=== PATIENT | female | born 1955 | race Caucasian/White ===

== ENCOUNTER 2017-03-17 07:56 | Outpatient (CLI) | payer MEDICARE, MEDICAID ==
[2017-03-17 08:11] LABS: Bilirubin Negative (Negative); Blood, Urine Trace (Negative); Clarity Clear (Clear); Glucose, Urine (Dipstick) Negative (Negative); Leukocyte Negative (Negative); Nitrite Negative (Negative); Protein, Urine (Dipstick) Negative (Neg-Trace)
[2017-03-17 09:05] LABS: Bacteria/HPF 1+ HPF (None Seen); RBC/HPF 0-3 HPF (0-3); Squamous Epithelial None Seen HPF (0-3); WBC/HPF 0-3 HPF (0-3)
== END 2017-03-17 07:57 | disposition home or self-care (01) ==
LOC: BURLABSP 07:56
PROVIDERS: ATTEND Clinical Nurse Specialist Medical-Surgical
DX: N39.0 Urinary tract infection, site not specified (principal)
CPT/HCPCS: 81001; 87086

== ENCOUNTER 2021-10-05 19:59 | Emergency (ER) | payer MEDICARE, MEDICAID ==
[2021-10-05 20:18] LABS: #Lymphocytes 1.5 thou/uL (1.20-3.40); #Monocytes 0.6 thou/uL (0.11-0.59); #Neutrophils 7.2 thou/uL (1.40-6.50); %Basophils 0.4 % (0.0-1.0); %Eosinophils 0.3 % (0.0-10.0); %Monocytes 6.5 % (0.0-10.0); %Neutrophils 76.7 % (42.0-75.0); Mean Corpuscular HGB CONC 33.3 g/dL (32.0-36.0); Mean Corpuscular Hemoglobin 31.6 pg (27.0-31.0); Mean Corpuscular Volume 94.9 fL (78.0-98.0); Mean Platelet Volume 9.6 fL (7.4-10.4); Platelet Count 149 thou/uL (130-400); Red Blood Cell (RBC) Count 4.42 mill/uL (4.20-5.40); White Blood Cell (WBC) Count 9.3 thou/uL (4.8-10.8)
[2021-10-05 20:45] LABS: ALT (SGPT) 34 U/L (8-55); AST (SGOT) 28 U/L (5-34); Albumin 3.9 g/dL (3.4-4.8); Alkaline Phosphatase 72 U/L (40-110); Anion Gap 18 mmol/L (10-20); BUN (Urea Nitrogen) 23 mg/dL (9.8-20.1); Bilirubin, Total 0.4 mg/dL (0.2-1.2); Calc. Creatinine Clearance 0 mL/min (70-130); Calcium 9.2 mg/dL (7.8-10.44); Carbon Dioxide 26 mmol/L (23-31); Chloride 102 mmol/L (98-107); Globulin 3.5 g/dL (2.4-3.5); Glucose 122 mg/dL (80-115); Potassium 3.8 mmol/L (3.5-5.1); Protein, Total 7.4 g/dL (5.8-8.1); Sodium 142 mmol/L (136-145)
[2021-10-05] MEDS ORDERED: Morphine 4 MG/ML VIAL ONE (21:37)
[2021-10-05] MEDS ORDERED: Piperacillin/Tazobactam 4.5 GM VIAL ONE (21:58)
[2021-10-05] MEDS ORDERED: methylPREDNISolone Sod Succ/PF 125 MG/2 ML VIAL ONE (22:00)
[2021-10-05] MEDS ORDERED: Sodium Chloride 0.9% 100 ML ONE (22:00)
[2021-10-05 23:25] LABS: SARS-CoV-2 NAA Rapid Test Not Detected (NotDetected)
== END 2021-10-05 22:30 | disposition short-term general hospital (02) ==
LOC: BURERS 19:59
DX: J69.0 Pneumonitis due to inhalation of food and vomit (principal); R09.02 Hypoxemia
CPT/HCPCS: 0241U; 71045; 80053; 83880; 85025; 87040; 93005; 96374; 96375; J2270; J2543; J2930; J3490; J7620

== ENCOUNTER 2023-02-28 10:17 | Emergency (ER) | payer MEDICARE, MEDICAID | END 2023-02-28 11:50 | disposition home or self-care (01) | LOC: BURERS 10:17 | DX: R05.9 Cough, unspecified (principal); I10 Essential (primary) hypertension; G40.909 Epilepsy, unspecified, not intractable, without status epilepticus; G20 Parkinson's disease; G10 Huntington's disease; F02.80 Dementia in other diseases classified elsewhere, unspecified severity, without behavioral disturbance, psychotic disturbance, mood disturbance, and anxiety; Z86.16 Personal history of COVID-19 | CPT/HCPCS: 71045 ==